=== PATIENT | male | born 1985 | race Caucasian/White ===

== ENCOUNTER 2017-09-16 11:46 | Emergency (ER) | payer OTHER ==
[2017-09-16] MEDS ORDERED: LIDOCAINE 2% MDV 20 ML VIAL As Ordered (13:31)
[2017-09-16] MEDS: LIDOCAINE 2% MDV 20 ML VIAL SC (13:35)
[2017-09-16] MEDS: ceFAZolin 1GM INJ (J0690 PER 500MG) IM ×2 (13:44→14:08)
== END 2017-09-16 15:28 | disposition home or self-care (01) ==
LOC: M ED 11:46
DX: S60.552A Superficial foreign body of left hand, initial encounter (principal); W29.4XXA Contact with nail gun, initial encounter; Y92.018 Other place in single-family (private) house as the place of occurrence of the external cause
CPT/HCPCS: J0690

== ENCOUNTER 2018-01-26 08:04 | Emergency (ER) | payer OTHER ==
[2018-01-26] MEDS: FLUORESCEIN OPHTH 1 MG STRIP OS (09:15)
[2018-01-26] MEDS: TETRACAINE 0.5% OPHTH SOLN 4ML OS (09:35)
== END 2018-01-26 09:45 | disposition home or self-care (01) ==
LOC: M ED 08:04
DX: H10.022 Other mucopurulent conjunctivitis, left eye (principal); Z20.818 Contact with and (suspected) exposure to other bacterial communicable diseases
CPT/HCPCS: 99283